=== PATIENT | female | born 1970 | race Caucasian/White ===

== ENCOUNTER → 2018-06-16 | Outpatient (CLI) | payer OTHER | LOC: M.ULTRA 15:12 | DX: N83.292 Other ovarian cyst, left side (principal); N94.5 Secondary dysmenorrhea; N94.10 Unspecified dyspareunia; N92.6 Irregular menstruation, unspecified; Z90.722 Acquired absence of ovaries, bilateral ==

== ENCOUNTER → 2019-05-11 | Outpatient (CLI) | payer OTHER | LOC: M.MRI 08:17 | DX: Z12.31 Encounter for screening mammogram for malignant neoplasm of breast (principal); R41.3 Other amnesia; R41.0 Disorientation, unspecified; R47.89 Other speech disturbances ==

== ENCOUNTER → 2019-06-19 | Outpatient (CLI) | payer OTHER | LOC: M.ULTRA 09:30 | DX: N63.12 Unspecified lump in the right breast, upper inner quadrant (principal) ==

== ENCOUNTER → 2019-09-02 | Outpatient (CLI) | payer OTHER | LOC: M.ULTRA 16:00 | DX: N83.202 Unspecified ovarian cyst, left side (principal); N94.6 Dysmenorrhea, unspecified; Z87.42 Personal history of other diseases of the female genital tract; Z90.79 Acquired absence of other genital organ(s); Z90.721 Acquired absence of ovaries, unilateral ==